=== PATIENT | male | born 1970 | race Caucasian/White ===

== ENCOUNTER → 2019-01-19 | Outpatient (CLI) | payer OTHER ==
--- NOTE | 2019-01-20 10:02 | REP ---
MRI brain without contrast: History: Unsteady gait. Progressing. Cerebellar ataxia. No comparison brain imaging. Technique: Axial and sagittal imaging planes are utilized for T1 and T2-weighted scans. Sequences include spin-echo, fast spin echo, FLAIR, and diffusion weighted sequences. MRI findings: There is mild to moderate cerebellar and cerebral volume loss and atrophic change. No bony calvarial lesion is seen. Craniocervical junction is unremarkable. Visualized paranasal sinuses are clear. No intraorbital abnormality is appreciated. Diffusion weighted scans show no evidence of restricted diffusion. There is no evidence of intracranial hemorrhage. No mass or infarction is seen. Mcgowan white differentiation pattern is normal. No abnormal white matter lesion is appreciated. Impression: Mild to moderate diffuse cerebral and cerebellar atrophy. Otherwise negative brain MRI study. Electronically Signed by Juan Ramon Oreilly MD 01/20/2019 03:47 P
== END ==
LOC: M RAD 17:56
PROVIDERS: ATTEND Psychiatry & Neurology Neurology
DX: G11.9 Hereditary ataxia, unspecified (principal); G31.9 Degenerative disease of nervous system, unspecified